=== PATIENT | female | born 1990 | race Caucasian/White ===

== ENCOUNTER 2016-03-05 23:40 | Emergency (ER) | payer OTHER ==
[~2016-03-05] VITALS: Ht 170.2 cm; Wt 90.9 kg
[~2016-03-05 23:40] MED LIST: CAR1 PO; IND20 PO; PROT40T PO; QTP100T PO; TRAZ-146 PO; VNL75T PO; ZOL50 PO
[2016-03-05 23:51] VITALS: BP 119/81; PULSE 82; RESP 16; O2SAT 99
--- NOTE | 2016-03-06 00:11 | ED.REPORT ---
HPI-General Illness Date of Service Mar 06, 2016 ED Provider: Dr. Darrell Cancino M.D. A 25 year old female with a history of ulcers and chronic nausea s/p gastric bypass surgery presents to the ED with left-sided chest pain onset three days ago. The pain has worsened tonight with radiation up her neck and down her left arm, exacerbated with being upright. Associated symptoms include nausea, vomiting, headache, throat pain, and voice hoarseness. The patient denies fever , chills, or cough. She was seen by her PCP since onset where she received an ECG and labs that indicated low thyroid levels. She has had similar pain in the past secondary to low potassium and iron levels, treated with blood transfusions. Nursing Notes Stated Complaint: CHEST & NECK PAIN Chief Complaint: Chest Pain Nursing Notes Reviewed: Yes Allergies: Coded Allergies: Penicillins (Verified Allergy, Severe, Anaphylaxis, 03/06/16) severe breathing problems morphine (Unverified Allergy, Severe, 03/06/16) vancomycin (Unverified Allergy, Severe, 03/06/16) Uncoded Allergies: cortisone (Allergy, Unknown, 06/02/12) NSAIDS (Adverse Reaction, Intermediate, 03/05/16) contraindicated because of ulcers Scheduled Pantoprazole DR (Protonix) 40 Mg Tablet 40 MG PO BID Pantoprazole-Expunged Drug, Do Not Renew! (Protonix-Expunged Drug, Do Not Renew! ) 40 Mg Tablet.dr 40 MG PO DAILY Propranolol-Expunged Drug, Do Not Renew! (Propranolol-Expunged Drug, Do Not Renew!) 20 Mg Tab PO BID QUEtiapine-Expunged Drug, Do Not Renew! (SEROquel-Expunged Drug, Do Not Renew!) 100 Mg Tablet 100 MG PO BID Sertraline-Expunged Drug, Choose New Med! (Sertraline-Expunged Drug, Choose New Med!) 50 Mg Tab 150 MG PO DAILY Venlafaxine-Expunged Drug, Do Not Renew! (Effexor-Expunged Drug, Do Not Renew!) 75 Mg Tablet 150 MG PO QAM Venlafaxine-Expunged Drug, Do Not Renew! (Effexor-Expunged Drug, Do Not Renew!) 75 Mg Tablet 75 MG PO DAILYWL Scheduled PRN Promethazine (Promethazine) 50 Mg Tablet 50 MG PO TID PRN PRN For Nausea Sucralfate-Expunged Drug, Do Not Renew! (Sucralfate-Expunged Drug, Do Not Renew! ) 1 Gm Tablet 1 GM PO TID PRN PRN Miscellaneous Medications Trazodone-Expunged Drug, Do Not Renew! (Trazodone-Expunged Drug, Do Not Renew!) 100 Mg Tablet 200 MG PO General Time Seen by MD: 00:10 Chief Complaint Chest pain Hx Obtained From: Patient Arrived By: Walk-in Sudden in Onset?: No Onset Occurred: 3 days ago Symptom Duration: Since onset Location: : Chest Quality: Painful Radiation: : Arm left Severity: Current: Moderate Severity: Maximum: Moderate Associated with: Reports: Nausea, Vomiting, Denies: Cough, Fever Pertinent Negative: Relieved by nothing Recent Healthcare: No recent doctor visit Similar Sx Previous: Yes Past Medical History Past Medical History Ulcers Chronic nausea Chronic low potassium and iron levels Past Surgical History Gastric Bypass Surgery Smoking History Unknown if Ever Smoker Social History Other Social History: Good social support Ambulatory Status Independent Review of Systems Full Review of Systems Constitutional: Denies: Chills, Fever Ears / Nose / Throat: Reports: Sore throat, Voice change (Hoarseness) Respiratory: Denies: Non-productive cough Cardiovascular: Reports: Chest pain (Left-sided) GI: Reports: Nausea, Vomiting Musculoskeletal: Reports: Extremity pain (Left arm), Neck pain Neurologic: Reports: Headache Complete sys rev & neg: except as marked. Physical Exam Vital Signs Vital Signs Date Time Temp Pulse Resp B/P Pulse Ox O2 Delivery O2 Flow Rate FiO2 03/06/16 03:45 73 22 107/66 99 Room Air 03/06/16 00:17 36.7 72 22 115/62 Room Air 03/05/16 23:51 36.2 82 16 119/81 99 Initial VS: Reviewed Head / Eyes: Atraumatic, Normocephalic Neck: Supple, Full range of motion Cardiovascular: Regular rate & rhythm, Heart sounds normal, Intact distal pulses Abdomen / GI: Soft, Non-tender Skin: Warm, Dry, No cyanosis Neurologic: Alert, Oriented, Nonfocal General/Constitutional: Awake, Alert, No acute distress Behavior: Positive: Anxious ENT: Airway patent, Pharynx NL Mouth: Positive: Mucous membranes dry Respiratory / Chest: Breath sounds NL, Breath sounds = bilat, No respiratory distress Chest Wall / Ribs: Positive: Chest tender lower L, Chest tender upper L, Rib tender nondeformed L Psychiatric: Affect NL, Cognitive function NL, Judgment/insight NL, Thought content NL Abnormal Mood/Affect: Positive: Anxious Interpretation & Diagnostics Lab Results Interpretation Result Diagram: 03/06/16 0015 03/06/16 0015 Test 03/06/16 00:15 03/06/16 02:20 White Blood Count 7.3th/mm3 (3.8-10.1) Red Blood Count 4.07mil/mm3 (3.90-5.20) Hemoglobin 10.1g/dL (12.0-15.6) Hematocrit 32.4% (35.0-46.0) Mean Corpuscular Volume 79.6fL (81-100) Mean Corpuscular Hemoglobin 24.8pg (27.0-35.0) Mean Corpuscular Hemoglobin Concent 31.2% (32.0-37.0) Red Cell Distribution Width 15.7% (12.3-15.4) Platelet Count 270bil/L (150-400) Neutrophils (%) (Auto) 54.3% (40-74) Lymphocytes (%) (Auto) 33.2% (14-46) Monocytes (%) (Auto) 10.5% (4-12) Eosinophils (%) (Auto) 1.4% (0-5) Basophils (%) (Auto) 0.5% (0-3) Erythrocyte Sedimentation Rate 17mm/hr (0-32) Prothrombin Time 10.3sec (8.1-12.5) Prothromb Time International Ratio 0.96ratio Activated Partial Thromboplast Time 29.6sec (22.8-33.0) D-Dimer < 0.5mg/L (<0.50) Sodium Level 140mEq/L (134-144) Potassium Level 3.7mEq/L (3.5-5.2) Chloride Level 106mEq/L (97-108) Carbon Dioxide Level 22mmol/L (18-29) Blood Urea Nitrogen 10mg/dL (6-20) Creatinine 0.63mg/dL (0.57-1.00) Estimat Glomerular Filtration Rate 164mL/min (>59) Glucose Level 81mg/dL (60-99) Calcium Level 8.5mg/dL (8.5-10.1) Magnesium Level 2.1mg/dL (1.6-2.6) Total Bilirubin 0.2mg/dL (0.0-1.2) Aspartate Amino Transf (AST/SGOT) 16U/L (0-50) Alanine Aminotransferase (ALT/SGPT) 13U/L (0-32) Alkaline Phosphatase 83U/L (25-150) Troponin T 0.010ug/L (0.0-0.011) Pro-B-Type Natriuretic Peptide 97pg/mL (0-130) Total Protein 7.1g/dL (6.4-8.4) Albumin 4.2g/dL (3.4-5.0) Hold Davis Top Tube Received (Received) Hold Urine Received (Received) ECG Interpretation ECG Interpretation: Sinus rhythm rate 74 Time: 00:09 Interpreted by: ED physician X-Ray Chest Interpretation Chest Xray Interpretation: Normal exam View: Portable, 1 view Interpretation / Wet Read by: Wet read ED physician Re-Eval/Medical Decision Med Decision/Clinical Course 25-year-old with positional elicitable chest wall pain. D-dimer is negative. EKG is completely normal. Chest x-rays benign. No evidence of life-threatening source and in fact this seems to be chest wall in origin. She is not a candidate for nonsteroidals due to her gastric bypass and prior ulceration. Home with oxycodone and double dose Protonix. Follow-up with PCP. Source of Hx: Old records Time of Eval: 03:05 Patient Status: Condition improved Re-Evaluation/Progress Note: Discussed with patient x-ray and lab results, diagnosis, and plan for discharge. Follow-up and return to the ER instructions given. Patient agrees with plan for care and all questions were addressed. Counseled Regarding: Diagnosis, Lab results, Need for follow-up, When/why to return to ED Discharge & Departure Shift Change Sign-Out Response to Therapy: Improved Primary Impression: Non-cardiac chest pain Disposition: Home Discharge Condition All VS Reviewed: Yes Condition: Improved Patient Instructions: Costochondritis (ED), Esophageal Spasm (ED) Additional Instructions: Percocet sparingly for pain Promethazine as needed for nausea Continue your pantoprazole at twice daily Follow-up with your doctor in the office Return if any immediate issues. Referrals: OTHER,PHYSICIAN (PCP) Scribe Attestation Portions of this note were transcribed by Kenna Melton. I, Dr. Cancino, personally performed the history, physical exam, and medical decision-making; I reviewed and confirmed the accuracy of the information in the transcribed note. Signed by: Beronica Millan, 03/06/2016, 04:40 Darrell Cancino MD Mar 06, 2016 00:11 KENNA MELTON Mar 06, 2016 00:19
[2016-03-06 00:17] VITALS: BP 115/62; PULSE 72; RESP 22
[2016-03-06] MEDS ORDERED: 0.9% Sodium Chloride 1,000 ML IV ONE (00:25)
[2016-03-06] MEDS ORDERED: Pantoprazole 4 mg/mL 10 mL Inj IVPUSH ONE (00:25)
[2016-03-06 00:26] LABS: BASOPHILS % (AUTO) 0.5 % (0-3); EOSINOPHILS % (AUTO) 1.4 % (0-5); MONOCYTES % (AUTO) 10.5 % (4-12); Mean Corpuscular Hemoglobin 24.8 pg (27.0-35.0); Mean Corpuscular Volume 79.6 fL (81-100); NEUTROPHILS % (AUTO) 54.3 % (40-74); Platelet Count 270 bil/L (150-400)
[2016-03-06 00:47] LABS: D-DIMER < 0.5 mg/L (<0.50); INR 0.96 ratio
[2016-03-06 00:53] LABS: TROPONIN T 0.01 ug/L (0.0-0.011)
[2016-03-06] MEDS ORDERED: Ondansetron 2 mg/mL 2 mL Inj IVPUSH ONE (01:00)
[2016-03-06 01:03] LABS: Magnesium 2.1 mg/dL (1.6-2.6)
[2016-03-06] MEDS ORDERED: Promethazine Inj 25 MG in Dextrose 5%-Pha MIX 50 ML IV ONE (02:15)
[2016-03-06] MEDS ORDERED: _oxyCODONE/APAP 5-325 mg Tablet PO PRN (03:10)
[2016-03-06] MEDS ORDERED: PANT40TA2 PO (03:14)
[2016-03-06] MEDS ORDERED: PROM50TA3 PO (03:14)
[2016-03-06 03:45] VITALS: BP 107/66; PULSE 73; RESP 22; O2SAT 99
--- NOTE | 2016-03-06 08:37 | DRSVH ---
PROCEDURE: X-RAY CHEST ONE VIEW, PORTABLE ([id number]) INDICATIONS: chest pain TECHNIQUE: One view of the chest was acquired. COMPARISON: [facility], CR, CHEST 2VW, 03/10/2011, 19:17. FINDINGS: Surgical changes and devices: None. Lungs and pleura: No pleural effusions or pneumothorax. Lungs are clear. Mediastinum: Mediastinal contours appear normal. Heart size is normal. Bones and chest wall: No suspicious bony lesions. Overlying soft tissues appear unremarkable. IMPRESSION: No acute process. Concordant with preliminary interpretation. Dictated by: Jenae Norman M.D. on 03/06/2016 at 8:34 Approved by: Jenae Norman M.D. on 03/06/2016 at 8:34
== END 2016-03-06 03:15 | disposition home or self-care (01) ==
LOC: SED 23:40
DX: R07.89 Other chest pain (principal); E87.6 Hypokalemia; R11.2 Nausea with vomiting, unspecified; Z87.11 Personal history of peptic ulcer disease; Z98.84 Bariatric surgery status; Z88.0 Allergy status to penicillin; Z88.5 Allergy status to narcotic agent; Z88.1 Allergy status to other antibiotic agents; Z88.8 Allergy status to other drugs, medicaments and biological substances; Z88.6 Allergy status to analgesic agent
CPT/HCPCS: 36415; 71010; 80053; 81025; 83735; 83880; 84484; 85025; 85379; 85610; 85651; 85730; 87880; 93005; 96361; 96374; 96375; 99285; J2405; J2550; J7030

== ENCOUNTER 2016-04-13 22:35 | Emergency (ER) | payer OTHER ==
[~2016-04-13] VITALS: Ht 170.2 cm; Wt 90.9 kg
[~2016-04-13 22:35] MED LIST changes: +PANT40TA2 PO; +PROM50TA3 PO
[2016-04-13 22:39] VITALS: BP 120/82; PULSE 92; RESP 16; O2SAT 100
[2016-04-13 23:08] LABS: APPEARANCE,URINE CLOUDY (CLEAR,HAZY); COLOR,URINE ORANGE (YELLOW)
[2016-04-13 23:37] LABS: BASOPHILS % (AUTO) 0.5 % (0-3); EOSINOPHILS % (AUTO) 1.5 % (0-5); MONOCYTES % (AUTO) 9.9 % (4-12); Mean Corpuscular Hemoglobin 25.1 pg (27.0-35.0); Mean Corpuscular Volume 79.8 fL (81-100); NEUTROPHILS % (AUTO) 66.5 % (40-74); Platelet Count 274 bil/L (150-400)
--- NOTE | 2016-04-13 23:47 | ED.REPORT ---
HPI-Abd Pain F Under 39 Date of Service Apr 13, 2016 ED Provider: Gemma Carlos MD The patient is a 25 year old female who presents to the ED complaining of pressure/pain in her lower abdomen and back for the last week. She was seen at her PCP a week ago and was diagnosed with a UTI- she finished a 5 day course of Cipro two days ago. Associated symptoms of low-grade fever, chills, nausea, vomiting, vaginal itching, and increased urinary urge/frequency. Her pain is exacerbated by walking. She is sexually active and had the Depo-Provera injection 4 months ago. She denies vaginal discharge, abnormal bleeding, or any other symptoms at this time. Nursing Notes Stated Complaint: LOW BACK PAIN, FEVER Chief Complaint: Female Abdominal Pain Nursing Notes Reviewed: Yes Allergies: Coded Allergies: Penicillins (Verified Allergy, Severe, Anaphylaxis, 04/13/16) severe breathing problems morphine (Unverified Allergy, Severe, 04/13/16) vancomycin (Unverified Allergy, Severe, 04/13/16) Uncoded Allergies: cortisone (Allergy, Unknown, 06/02/12) NSAIDS (Adverse Reaction, Intermediate, 03/05/16) contraindicated because of ulcers Scheduled Cephalexin (Keflex) 500 Mg Capsule 500 MG PO QID Pantoprazole DR (Protonix) 40 Mg Tablet 40 MG PO BID Pantoprazole-Expunged Drug, Do Not Renew! (Protonix-Expunged Drug, Do Not Renew! ) 40 Mg Tablet.dr 40 MG PO DAILY Propranolol-Expunged Drug, Do Not Renew! (Propranolol-Expunged Drug, Do Not Renew!) 20 Mg Tab PO BID QUEtiapine-Expunged Drug, Do Not Renew! (SEROquel-Expunged Drug, Do Not Renew!) 100 Mg Tablet 100 MG PO BID Sertraline-Expunged Drug, Choose New Med! (Sertraline-Expunged Drug, Choose New Med!) 50 Mg Tab 150 MG PO DAILY Venlafaxine-Expunged Drug, Do Not Renew! (Effexor-Expunged Drug, Do Not Renew!) 75 Mg Tablet 150 MG PO QAM Venlafaxine-Expunged Drug, Do Not Renew! (Effexor-Expunged Drug, Do Not Renew!) 75 Mg Tablet 75 MG PO DAILYWL Scheduled PRN Promethazine (Promethazine) 50 Mg Tablet 50 MG PO TID PRN PRN For Nausea Sucralfate-Expunged Drug, Do Not Renew! (Sucralfate-Expunged Drug, Do Not Renew! ) 1 Gm Tablet 1 GM PO TID PRN PRN Miscellaneous Medications Trazodone-Expunged Drug, Do Not Renew! (Trazodone-Expunged Drug, Do Not Renew!) 100 Mg Tablet 200 MG PO General Time Seen by MD: 23:46 Chief Complaint Abdominal pain Hx Obtained From: Patient Arrived By: Walk-in Sudden in Onset?: No Onset Occurred: 1 week ago Symptom Duration: Since onset Progression since Onset: Gradually worsening Location: : Diffuse Severity: Current: Mild Severity: Maximum: Moderate Recent Healthcare: No recent hospitalization, Recent doctor visit, Recent testing, Previous diagnosis Similar Sx Previous: No Past Medical History Past Medical History Ulcers Chronic nausea Chronic low potassium and iron levels Past Surgical History Gastric Bypass Surgery Smoking History Unknown if Ever Smoker Social History Other Social History: Good social support Ambulatory Status Independent Review of Systems Constitutional: Reports: Chills, Fever Respiratory: Denies: Non-productive cough, Shortness of breath Cardiovascular: Denies: Chest pain, Syncope GI: Reports: Abdominal pain, Nausea, Vomiting, Denies: Diarrhea Female: Reports: Dysuria, Flank pain, Urinary frequency, Urinary urgency, Denies: Vaginal discharge Complete sys rev & neg: except as marked. Physical Exam Initial Vital Signs Vital Signs (First) Date Time Temp Pulse Resp B/P Pulse Ox O2 Delivery O2 Flow Rate FiO2 04/13/16 22:39 36.4 92 16 120/82 100 Room Air Initial VS: Reviewed Head / Eyes: Atraumatic, Normocephalic, PERRL ENT: Mucous membranes moist, Conjunctiva normal, No scleral icterus Neck: Supple, Non-tender, Full range of motion Extremities: Vascular intact, Neuro intact, No swelling, No tenderness Skin: Warm, Dry, No cyanosis Neurologic: Alert, Oriented, Nonfocal Psychiatric: Mood/affect normal, Behavior normal, Normal thought content General/Constitutional: Awake, Alert, No acute distress Respiratory / Chest: Atraumatic, Breath sounds NL, Breath sounds = bilat, No respiratory distress Cardiovascular: Heart rate NL, Regular rhythm, Heart sounds NL Abdomen: Atraumatic, Soft, No guarding, No rebound Tenderness/Guarding/Rebound: Positive: Tender diffuse Back: Atraumatic Bilateral CVA tenderness Interpretation & Diagnostics Lab Results Interpretation Result Diagram: 04/13/16 2325 04/13/16 2325 Test 04/13/16 23:01 04/13/16 23:25 Urine Color [place] (YELLOW) Urine Appearance Cloudy (CLEAR,HAZY) Urine pH (5.0-8.0) Urine Specific [place] 1.035 (1.003-1.035) Urine Protein mg/dL (NEG,TRACE) Urine Glucose (UA) mg/dL (NEGATIVE) Urine Ketones mg/dL (NEGATIVE) Urine Occult Blood (NEGATIVE) Urine Nitrite (NEGATIVE) Urine Bilirubin (NEGATIVE) Urine Urobilinogen mg/dL (NORMAL) Urine Leukocyte Esterase (NEGATIVE) Urine RBC 0-2/hpf (0-2) Urine WBC 11-50/hpf (0-5) Urine Epithelial Cells Moderate/hpf (NONE-MOD) Urine Crystals Sufonamide crystals (NONE Urine Bacteria Few/hpf (NONE-FEW) Urine Hyaline Casts None/lpf (NONE) Urine Granular Casts None seen (NONE SEEN) Urine Waxy Casts None seen (NONE SEEN) Urine Red Blood Cell Casts None seen (NONE SEEN) Urine White Blood Cell Casts None seen (NONE SEEN) Urine Mucus Present (None Seen) Urine Trichomonas None seen (NONE SEEN) Urine Yeast None (NONE SEEN) Urinalysis Comment Color interference Urine Culture Reflexed Indicated White Blood Count 8.7th/mm3 (3.8-10.1) Red Blood Count 4.30mil/mm3 (3.90-5.20) Hemoglobin 10.8g/dL (12.0-15.6) Hematocrit 34.3% (35.0-46.0) Mean Corpuscular Volume 79.8fL (81-100) Mean Corpuscular Hemoglobin 25.1pg (27.0-35.0) Mean Corpuscular Hemoglobin Concent 31.5% (32.0-37.0) Red Cell Distribution Width 17.1% (12.3-15.4) Platelet Count 274bil/L (150-400) Neutrophils (%) (Auto) 66.5% (40-74) Lymphocytes (%) (Auto) 21.5% (14-46) Monocytes (%) (Auto) 9.9% (4-12) Eosinophils (%) (Auto) 1.5% (0-5) Basophils (%) (Auto) 0.5% (0-3) Sodium Level 139mEq/L (134-144) Potassium Level 3.7mEq/L (3.5-5.2) Chloride Level 104mEq/L (97-108) Carbon Dioxide Level 19mmol/L (18-29) Blood Urea Nitrogen 9mg/dL (6-20) Creatinine 0.59mg/dL (0.57-1.00) Estimat Glomerular Filtration Rate 176mL/min (>59) Glucose Level 92mg/dL (60-99) Calcium Level 8.7mg/dL (8.5-10.1) Total Bilirubin 0.2mg/dL (0.0-1.2) Aspartate Amino Transf (AST/SGOT) 26U/L (0-50) Alanine Aminotransferase (ALT/SGPT) 20U/L (0-32) Alkaline Phosphatase 97U/L (25-150) Total Protein 7.3g/dL (6.4-8.4) Albumin 4.3g/dL (3.4-5.0) HCG Beta Subunit 3398mIU/mL Hold Davis Top Tube Received (Received) Lab Results Interpretation: Positive urine- Re-Eval/Medical Decision Med Decision/Clinical Course 25-year-old here with dysuria and flank pain after taking a course of ciprofloxacin. Differential diagnosis includes but is not limited to pyelonephritis versus urinary tract infection versus versus drug- seeking behavior. Patient's test is positive, along with a beta hCG. She denies any vaginal complaints and has no abdominal pain at this time, and I do not feel she requires workup for miscarriage. She does have evidence of urinary tract infection. She was given fluids and Rocephin in the emergency department. She was discharged with a round of Keflex. She has been advised to follow up with [facility] and her primary care physician for further workup. She is aware amenable to discharge and has been given very strict return precautions. Source of Hx: Old records Re-Evaluation/Progress #1: Time of Eval: 00:17 Re-Evaluation/Progress Note: Rechecked patient to discuss positive u-preg. Discussed plan for further blood testing. The patient understands and agrees to plan. All questions addressed. Re-Evaluation/Progress #2: Time of Eval: 01:36 Re-Evaluation/Progress Note: Rechecked the patient. Discussed diagnosis and plan for discahrge. The patient understands and agrees to the plan. Follow-up instructions and RTER warnings given. All questions addressed. Counseled Regarding: Diagnosis, Lab results, Need for follow-up, When/why to return to ED Discharge & Departure Primary Impression: Urinary tract infection Additional Impression: Disposition: Home Discharge Condition All VS Reviewed: Yes Condition: Stable Patient Instructions: Urinary Tract Infection in Women (ED) Additional Instructions: Your emergency department evaluation included a consultation, physical examination, urine testing, and blood testing. Your urine confirms that you have a urinary tract infection, I have prescribed you Keflex to help treat this. Please take it as directed. Your blood work has confirmed that you are . I have included a referral to Dr. Curtis, our OBGYN. Please follow-up with her in the next week. Return to the emergency room if you experience worsening pain, severe vaginal bleeding/discharge, or if you develop any other new/concerning symptoms. Thank you for coming in tonight. I hope you start to feel better soon and I wish you the best in your follow-up appointment. Referrals: OTHER,PHYSICIAN (PCP) Yeison Curtis MD Attestation Portions of this note were transcribed by Dominik East. I, Dr. Carlos, personally performed the history, physical exam, and medical decision-making; I reviewed and confirmed the accuracy of the information in the transcribed note. Signed by: Beronica Candelario, 04/14/16 01:37. Gemma Carlos MD Apr 13, 2016 23:47 DOMINIK EAST Apr 14, 2016 00:18
[2016-04-14] MEDS ORDERED: cefTRIAXone Inj 1,000 MG in Dextrose 5% Minibag Plus 50 ML IV SCH (00:20)
[2016-04-14] MEDS ORDERED: 0.9% Sodium Chloride 1,000 ML IV ONE (00:55)
[2016-04-14] MEDS ORDERED: CEPH-512 PO (01:39)
[2016-04-14 01:49] VITALS: BP 110/67; PULSE 91; RESP 16; O2SAT 99
== END 2016-04-14 01:50 | disposition home or self-care (01) ==
LOC: SED 22:35
DX: O23.40 Unspecified infection of urinary tract in pregnancy, unspecified trimester (principal); Z3A.00 Weeks of gestation of pregnancy not specified; Z98.84 Bariatric surgery status; Z88.0 Allergy status to penicillin; Z88.5 Allergy status to narcotic agent; Z88.1 Allergy status to other antibiotic agents; Z88.8 Allergy status to other drugs, medicaments and biological substances; Z88.6 Allergy status to analgesic agent
CPT/HCPCS: 36415; 80053; 81000; 81025; 84702; 85025; 87086; 87088; 87147; 96360; 99284; J7030